=== PATIENT | male | born 1945 | race Caucasian/White ===

== ENCOUNTER 2016-12-27 14:24 | Inpatient (IN) | payer MEDICARE, OTHER ==
[~2016-12-27] VITALS: Ht 180.3 cm; Wt 166.0 kg
[~2016-12-27 14:24] MED LIST: ALBU6.7H IH; AMIO200T2 PO; ASPI-630 PO; ATOR20TA58 PO; EZET10TA18 PO; FISH OIL; FLUT1DIS3 IH; FLUT9.9S NS; FOSI20TA PO; FURO40TA4 PO; GLUC500T10 PO; GLYBURIDE PO; INSU100V13 SQ; IPRA12.9 IH; MAGN400T22 PO; MECL25TA3 PO; METFORMIN PO; METO200T3 PO; OMEGA; POTA20TA12 PO; RIVA10TA PO
--- NOTE | 2016-12-27 14:45 | NUR ---
The patient, JOSIAH SYED JR, 71 y/o, M admitted by DAPHNIE HOLMAN MD, was given written information regarding hospital policies, unit procedures and contact persons. Patient arrived at 1445. He stated he drove himself to hospital and was a direct admit. Stated that he had been bitten by a spider on the top or the right foot on Friday, has been on oral Bactrim DS since Friday. Valuables were checked and wallet and keys sent to safe per patient request.
[2016-12-27 15:08] VITALS: BP 124/68
[2016-12-27] MEDS ORDERED: VANCOMYCIN PER PHARMACY MC PRN (15:15)
[2016-12-27 15:34] LABS: BASO # 0.1 x10^3/uL (0.0-0.2); BASO % 1 % (0-3); EOS # 0.1 x10^3/uL (0.0-0.7); EOS % 1 % (0-3); HEMATOCRIT 37.4 % (39.0-53.0); HEMOGLOBIN 12.8 g/dL (13.0-17.5); LYMPH # 1.5 x10^3/uL (1.0-4.8); LYMPH % 15 % (24-48); MEAN CORPUSCULAR HEMOGLOBIN 30 pg (25-35); MEAN CORPUSCULAR HGB CONC 34 g/dL (31-37); MEAN CORPUSCULAR VOLUME 88 fL (79-100); MONO # 0.8 x10^3/uL (0.0-1.1); MONO % 8 % (0-9); NEUT # 7.7 x10^3uL (1.8-7.7); NEUT % 76 % (31-73); PLATELET COUNT 229 x10^3/uL (140-400); RED BLOOD COUNT 4.26 x10^6/uL (4.30-5.70); RED CELL DISTRIBUTION WIDTH 13.3 % (11.5-14.5); WHITE BLOOD COUNT 10.2 x10^3/uL (4.0-11.0)
[2016-12-27 15:38] LABS: ALBUMIN 3.4 g/dL (3.4-5.0); ALBUMIN/GLOBULIN RATIO 0.9 (1.0-1.7); CALCIUM 9.2 mg/dL (8.5-10.1); CREATININE 2.5 mg/dL (0.7-1.3); GFR 25.6; POTASSIUM 4.9 mmol/L (3.5-5.1); TOTAL BILIRUBIN 0.3 mg/dL (0.2-1.0); TOTAL PROTEIN 7.1 g/dL (6.4-8.2)
[2016-12-27] MEDS ORDERED: VANCOMYCIN 2 GM in IV NORMAL SALINE 500ML 500 ML IV ONE ×2 (15:45→16:00)
[2016-12-27] MEDS: HYDROcodone/APAP 5/325MG 1 TAB TABLET PO PRN (16:10)
[2016-12-27] MEDS ORDERED: SILD100T PO (16:59)
[2016-12-27] MEDS ORDERED: INSU200I4 SQ (16:59)
[2016-12-27] MEDS ORDERED: SENN-37 PO (16:59)
[2016-12-27] MEDS ORDERED: DOCU100C28 PO (16:59)
[2016-12-27] MEDS ORDERED: GABA-586 PO (16:59)
[2016-12-27] MEDS ORDERED: FEXO180T16 PO (16:59)
[2016-12-27] MEDS ORDERED: MULT1TAB52 PO (16:59)
[2016-12-27] MEDS ORDERED: GLYBURIDE PO SCH (17:00)
[2016-12-27] MEDS ORDERED: IPRATROPIUM BROMIDE 17MCG/PUFF 12.9GM INHALER. IH SCH (17:00)
[2016-12-27] MEDS: SENNOSIDES/DOCUSATE 8.6/50MG TABLET. PO SCH (17:00)
[2016-12-27] MEDS ORDERED: METFORMIN PO SCH (17:00)
--- NOTE | 2016-12-27 17:07 | NUR ---
Pharmacy Vancomycin Dosing Note S:Consulted to monitor and dose vancomycin started 12/27/16. O:SAYDAYOLAJOSIAH is a 71 year old M with Cellulitis . Height: 5 feet, 11 inches Weight: 166.526044 kg Gilliam Body Weight: Adjusted Body Weight: Dosing Weight: Actual Other Antibiotics: LABS: Last BUN: 28 Last Creatinine: 2.5 Creatinine Clearance: Last WBC: 10.2 Last Platelets: 229 Tmax (past 24 hours): Microbiology: I/O: Drug Levels: Last level: on at Last dose given 12/27/16 at 1612 Vancomycin Dosing: Loading Dose: 2000 mg x1 Dosing Weight: Actual Target Trough: 10-20 A: Based on: P: 1. Begin Vancomycin 2000 mg IV q24h 2. Follow up Trough level on 12/29/16 at 1530 3. Pharmacy will continue to monitor, follow and adjust therapy as needed. SALO PEREZ RPH, 12/27/16 [id number]
--- NOTE | 2016-12-27 18:07 | NUR ---
RENAL DOSING: patient takes Xarelto at home 20mg daily for afib, serum creatinine-2.5, creatinine clearance- 42.8mL/min, dose of Xarelto adjusted to 15mg po daily, will continue to monitor renal function and restart home dose when renal function improves.
--- NOTE | 2016-12-27 18:08 | RAD ---
EXAM: RIGHT LOWER EXTREMITY VENOUS DOPPLER. HISTORY: Right lower extremity pain/swelling. FINDINGS: Grayscale and doppler analysis of the right lower extremity deep venous system was performed with graded compression and augmentation. The common femoral, greater saphenous, deep femoral, superficial femoral, popliteal, and calf veins were assessed. There is no evidence of deep venous thrombosis. IMPRESSION: No evidence of deep venous thrombosis. Electronically signed by: Dario Randhawa (Dec 27, 2016 18:07:15)
[2016-12-27 18:29] VITALS: BP 124/68
[2016-12-27] MEDS ORDERED: DEXTROSE 50% 25 GM / 50ML DISP.SYRIN. IV PRN (19:15)
[2016-12-27 19:50] VITALS: BP 128/66
[2016-12-27] MEDS: BUDESONIDE 0.5 MG/2 ML NEBU NEB SCH (20:20)
[2016-12-27] MEDS: IPRATROPIUM BROMIDE 0.5 MG/2.5 ML NEBU. NEB SCH (20:20)
[2016-12-27] MEDS: ALBUTEROL SULFATE 2.5 MG/3 ML NEBU. NEB SCH (20:20)
[2016-12-27] MEDS: GABAPENTIN 300 MG CAPSULE. PO SCH (20:44)
[2016-12-27] MEDS: AMIODARONE HCL 200 MG TABLET PO SCH (20:45)
[2016-12-27] MEDS ORDERED: RIVAROXABAN 15 MG TABLET. PO SCH (21:00)
[2016-12-27] MEDS: INSULIN ASPART 300 UNITS/3 ML INSULN.PEN SQ SCH (21:00)
[2016-12-27] MEDS: AZTREONAM 1 GM in IV NORMAL SALINE 50ML 50 ML IV SCH (22:00)
[2016-12-27] MEDS ORDERED: IV NORMAL SALINE 100ML 0 ML ONE (22:24)
--- NOTE | 2016-12-28 01:50 | NUR ---
Nursing Note: HS Novolog, Xarelto and IV Aztreonam documented on Down time forms.
[2016-12-28 03:00] VITALS: BP 172/87
[2016-12-28] MEDS: AZTREONAM 1 GM in IV NORMAL SALINE 50ML 50 ML IV SCH ×3 (04:57→21:31)
[2016-12-28] MEDS: HYDROcodone/APAP 5/325MG 1 TAB TABLET PO PRN ×2 (04:59→11:17)
[2016-12-28] MEDS: ALBUTEROL SULFATE 2.5 MG/3 ML NEBU. NEB SCH ×4 (05:19→20:39)
[2016-12-28 05:54] LABS: BACTERIA,URINE 0 /HPF (0-FEW); BILIRUBIN,URINE NEG (NEG); CLARITY,URINE CLEAR; COLOR,URINE YELLOW; GLUCOSE,URINE NEG (NEG); NITRITE,URINE NEG (NEG); RBC,URINE 0 /HPF (0-2); UROBILINOGEN,URINE 0.2 mg/dL (0.2 mg/dL); WBC,URINE RARE /HPF (0-4)
--- NOTE | 2016-12-28 06:17 | NUR ---
Nursing Note: Kiss Photograph of open area to R dorsal foot complete. Open area measures 0.5cm x 1cm with Deep Redness of surrounding tissue measuring 7.5cm in Diameter, Kiss photograph of Redness completed.
[2016-12-28 06:24] VITALS: BP 120/60
[2016-12-28 06:54] LABS: CALCIUM 9.2 mg/dL (8.5-10.1); GFR 33.1; POTASSIUM 4.2 mmol/L (3.5-5.1)
[2016-12-28 06:59] LABS: HEMATOCRIT 37.9 % (39.0-53.0); HEMOGLOBIN 12.4 g/dL (13.0-17.5); LYMPH % 30 % (24-48); MEAN CORPUSCULAR HEMOGLOBIN 29 pg (25-35); MEAN CORPUSCULAR HGB CONC 33 g/dL (31-37); MEAN CORPUSCULAR VOLUME 90 fL (79-100); MONO % 11 % (0-9); NEUT % 56 % (31-73); PLATELET COUNT 215 x10^3/uL (140-400); RED BLOOD COUNT 4.22 x10^6/uL (4.30-5.70); RED CELL DISTRIBUTION WIDTH 13.2 % (11.5-14.5); WHITE BLOOD COUNT 7.1 x10^3/uL (4.0-11.0)
[2016-12-28 07:00] LABS: BASO # 0.1 x10^3/uL (0.0-0.2); BASO % 1 % (0-3); EOS # 0.2 x10^3/uL (0.0-0.7); EOS % 3 % (0-3); LYMPH # 2.1 x10^3/uL (1.0-4.8); MONO # 0.8 x10^3/uL (0.0-1.1)
[2016-12-28] MEDS: FUROSEMIDE 40 MG TABLET PO SCH (08:30)
[2016-12-28] MEDS: GABAPENTIN 300 MG CAPSULE. PO SCH ×3 (08:30→21:31)
[2016-12-28] MEDS: MULTIVITAMIN with MINERAL TABLET. PO SCH (08:30)
[2016-12-28] MEDS: CETIRIZINE HCL 10 MG TABLET PO SCH (08:30)
[2016-12-28] MEDS: METOPROLOL SUCC 24HR ER 100 MG TAB.ER.24H. PO SCH (08:32)
[2016-12-28] MEDS: EZETIMIBE 10 MG TABLET PO SCH (08:32)
[2016-12-28] MEDS: ASPIRIN 81 MG TAB.CHEW PO SCH (08:32)
[2016-12-28] MEDS: ATORVASTATIN CALCIUM 20 MG TABLET PO SCH (08:33)
[2016-12-28] MEDS: AMIODARONE HCL 200 MG TABLET PO SCH ×2 (08:33→21:31)
[2016-12-28] MEDS: FLUTICASONE 50MCG/NASAL SPRAY 16GM BOTTLE. NS SCH (08:34)
[2016-12-28] MEDS: DOCUSATE SODIUM 100 MG CAPSULE PO SCH (08:34)
[2016-12-28] MEDS: INSULIN ASPART 300 UNITS/3 ML INSULN.PEN SQ SCH ×4 (08:50→21:35)
[2016-12-28] MEDS ORDERED: NON FORMULARY ITEM (Fluticasone/Salmeterol (Advair 250-50 Diskus) 1 EACH) IH SCH (09:00)
[2016-12-28] MEDS ORDERED: RIVAROXABAN 15 MG TABLET. PO SCH ×2 (09:00→21:00)
[2016-12-28] MEDS: BUDESONIDE 0.5 MG/2 ML NEBU NEB SCH ×2 (10:30→20:39)
[2016-12-28] MEDS: IPRATROPIUM BROMIDE 0.5 MG/2.5 ML NEBU. NEB SCH ×4 (10:31→20:39)
[2016-12-28 12:19] VITALS: BP 130/75
--- NOTE | 2016-12-28 12:40 | NUR ---
Pt A&Ox4, cooperative with Adelina frazier RN, in with pt at this time for PICC line placement
--- NOTE | 2016-12-28 14:00 | NUR ---
Order in for wound swab, skin is intact at insect bite with no drainage to swab
--- NOTE | 2016-12-28 14:00 | NUR ---
PICC line placement complete, pt tolerated procedure well, no complaints.
--- NOTE | 2016-12-28 14:14 | NUR ---
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
--- NOTE | 2016-12-28 14:16 | NUR ---
Procedure: Following complete explanation of the PICC procedure including the indications, risks, and potential complications, informed consent was obtained. The possibility for infection was discussed along with signs, symptoms, and prevention. All the patient's questions were answered. IV Device Protocol was used. Written and verbal patient education was provided. Hand hygiene performed. Standardized central line checklist was utilized. The patient was placed in the supine position, the arm was prepped with chlorhexidine and patient draped with maximum sterile barrier. 2 mL 1% lidocaine was infiltrated into the skin to provide local anesthesia. A thorough assessment of the right upper extremity completed. Using real-time ultrasound guidance and standardized micro puncture set, the basilic vein was punctured and a peel away sheath was placed using the modified Seldinger technique. A tip location device was used to ensure adequate catheter placement. The catheter was secured using a securement device and an antimicrobial patch was applied directly on the insertion site followed by a transparent dressing. All ports withdraw blood and flush without resistance. Patient tolerated the procedure without apparent complication(s). A double Lumen Power PICC placement successful and uncomplicated. Placement verified by EKG tip confirmation system. Tip located at CAJ according to EKG system Complications:none
[2016-12-28] MEDS: VANCOMYCIN 2 GM in IV NORMAL SALINE 500ML 500 ML IV SCH (16:37)
[2016-12-28 16:43] VITALS: BP 165/76
[2016-12-28] MEDS: SENNOSIDES/DOCUSATE 8.6/50MG TABLET. PO SCH (17:33)
[2016-12-28 19:00] VITALS: BP 137/67
[2016-12-28] MEDS: INSULIN DETEMIR 300 UNITS/3 ML INSULN.PEN. SQ SCH (21:35)
[2016-12-28] MEDS ORDERED: IV NORMAL SALINE 500ML 0 ML ONE (21:44)
--- NOTE | 2016-12-29 01:53 | PN ---
DATE: 12/28/2016 SUBJECTIVE: A 71-year-old gentleman with sepsis, cellulitis to the right foot, diabetic. The patient apparently was treated as an outpatient, got worse. His lactate was elevated. White count was not too impressive; however, it is noted he had blood sugar of 250, lactic acid 2.2, creatinine of 2.5, which everything has come down. His creatinine now is 2, his lactic acid is 1.6. Blood sugar down about 200. He is receiving IV vancomycin and Azactam and seems to be doing somewhat better. He is not running a temperature. OBJECTIVE: VITAL SIGNS: Blood pressure 120/60, respiratory rate 18, pulse 64, afebrile. LUNGS: Clear. CARDIOVASCULAR: Stable in this very nice portly gentleman. EXTREMITIES: The right foot is swollen, but less so than it has been with marked erythema, less so that has been. IMPRESSION: Sepsis, acute renal failure, cellulitis of the right foot, type 2 diabetes, morbid obesity. PLAN: Continue on IV antibiotic therapy, PICC line and then hopefully home and then for IV antibiotic therapy as an outpatient. DAPHNIE HOLMAN MD DR: LANDON/pako JOB#: [id number] / [id number]
[2016-12-29] MEDS: HYDROcodone/APAP 5/325MG 1 TAB TABLET PO PRN ×2 (02:24→08:01)
[2016-12-29] MEDS: ALBUTEROL SULFATE 2.5 MG/3 ML NEBU. NEB SCH ×2 (05:20→10:20)
[2016-12-29 05:36] LABS: HEMOGLOBIN A1C 9.8 % (4.8-5.6)
[2016-12-29] MEDS: AZTREONAM 1 GM in IV NORMAL SALINE 50ML 50 ML IV SCH ×2 (05:36→14:34)
[2016-12-29 06:03] VITALS: BP 178/67
[2016-12-29] MEDS: FUROSEMIDE 40 MG TABLET PO SCH (07:58)
[2016-12-29] MEDS: ASPIRIN 81 MG TAB.CHEW PO SCH (07:58)
[2016-12-29] MEDS: ATORVASTATIN CALCIUM 20 MG TABLET PO SCH (07:59)
[2016-12-29] MEDS: DOCUSATE SODIUM 100 MG CAPSULE PO SCH (07:59)
[2016-12-29] MEDS: GABAPENTIN 300 MG CAPSULE. PO SCH ×2 (07:59→14:34)
[2016-12-29] MEDS: METOPROLOL SUCC 24HR ER 100 MG TAB.ER.24H. PO SCH (07:59)
[2016-12-29] MEDS: CETIRIZINE HCL 10 MG TABLET PO SCH (07:59)
[2016-12-29] MEDS: AMIODARONE HCL 200 MG TABLET PO SCH (08:00)
[2016-12-29] MEDS: EZETIMIBE 10 MG TABLET PO SCH (08:00)
[2016-12-29] MEDS: MULTIVITAMIN with MINERAL TABLET. PO SCH (08:00)
[2016-12-29] MEDS: INSULIN DETEMIR 300 UNITS/3 ML INSULN.PEN. SQ SCH (08:14)
[2016-12-29] MEDS: INSULIN ASPART 300 UNITS/3 ML INSULN.PEN SQ SCH ×3 (08:14→17:10)
[2016-12-29] MEDS: FLUTICASONE 50MCG/NASAL SPRAY 16GM BOTTLE. NS SCH (08:15)
[2016-12-29] MEDS: BUDESONIDE 0.5 MG/2 ML NEBU NEB SCH (10:20)
[2016-12-29] MEDS: IPRATROPIUM BROMIDE 0.5 MG/2.5 ML NEBU. NEB SCH ×2 (10:20→10:21)
[2016-12-29] MEDS ORDERED: RIVA15TA PO (13:04)
[2016-12-29] MEDS ORDERED: VANC1VIA3 MC (13:04)
[2016-12-29] MEDS ORDERED: INSU100I27 SQ (13:04)
[2016-12-29 14:24] VITALS: BP 149/76
--- NOTE | 2016-12-29 14:26 | RAD ---
Three-view right foot study History: Wound of the top of the right foot with redness and swelling and cellulitis. Findings: No acute fracture or dislocation or osteolytic process is seen. Dorsal soft tissue swelling is seen. No radiopaque foreign body is evident here. Small plantar spur of the calcaneus is seen. 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 IMPRESSION: No acute osseous abnormality is seen.
[2016-12-29 15:56] LABS: VANC TR 10.3 mcg/mL (10.0-20.0)
[2016-12-29] MEDS: VANCOMYCIN 2 GM in IV NORMAL SALINE 500ML 500 ML IV SCH (16:26)
[2016-12-29] MEDS: SENNOSIDES/DOCUSATE 8.6/50MG TABLET. PO SCH (17:13)
--- NOTE | 2016-12-29 17:53 | NUR ---
Pt given all of his belongings, perscriptions, d/c instructions regarding PICC line care, written information on maintaining blood glucose levels, ADA diet guidelines and vancomycin, pt set up and instructed regarding reporting to [facility] for out-pt antibiotic treatments once a day for next 14 days starting tomorrow . Pt is currently getting last dose of vanco for today and will d/c when infusion is complete.
--- NOTE | 2016-12-29 19:00 | NUR ---
Pt ambulated off unit at 1900 assisted by staff.
== END 2016-12-29 19:02 | disposition home or self-care (01) | DRG 872 ==
LOC: 1 SOUTH 14:24
PROVIDERS: ADMIT Family Medicine; ATTEND Family Medicine
DX: A41.9 Sepsis, unspecified organism (principal); L03.115 Cellulitis of right lower limb; N17.9 Acute kidney failure, unspecified; Z68.43 Body mass index [BMI] 50.0-59.9, adult; E11.9 Type 2 diabetes mellitus without complications; E66.01 Morbid (severe) obesity due to excess calories
CPT/HCPCS: 36415; 73630; 80048; 80053; 80202; 81001; 82947; 83036; 83605; 85027; 85651; 87040; 87086; 93971; 94640; J1815; J3370; J3490; J7040; J7613; J7626; J7644

== ENCOUNTER → 2019-01-05 | Outpatient (CLI) | payer MEDICARE, OTHER ==
[2017-01-28 06:35] VITALS: BP 156/83
[~2019-01-05] MED LIST changes: +ALBU2.5V8 IH; -ALBU6.7H IH; -AMIO200T2 PO; +AMIO200T4 PO; +DOCU100C28 PO; +FEXO180T16 PO; -FOSI20TA PO; +FOSI20TA7 PO; +GABA-586 PO; +INSU100I27 SQ; +INSU200I4 SQ; -METO200T3 PO; +METO200T46 PO; +MULT1TAB52 PO; +RIVA15TA PO; +SENN-37 PO; +SILD100T PO; +VANC1VIA3 MC
[2019-01-05 12:20] LABS: CALCIUM 9.2 mg/dL (8.5-10.1); CREATININE 1.8 mg/dL (0.7-1.3); GFR 37.2; POTASSIUM 4.5 mmol/L (3.5-5.1)
== END | disposition home or self-care (01) ==
LOC: LAB 11:14
PROVIDERS: ATTEND Family Medicine
DX: I10 Essential (primary) hypertension (principal)
CPT/HCPCS: 36415; 80048

== ENCOUNTER 2019-10-18 10:57 | Inpatient (IN) | payer MEDICARE, OTHER ==
[~2019-10-18] VITALS: Ht 179.1 cm; Wt 166.6 kg
[~2019-10-18 10:57] MED LIST changes: -EZET10TA18 PO; +EZET10TA20 PO; +MECL-75 PO; -MECL25TA3 PO
[2019-10-18 11:50] VITALS: BP 100/61
[2019-10-18] MEDS ORDERED: [UNRECOGNIZED DRUG - REMARK] (12:34)
[2019-10-18] MEDS ORDERED: METF10007 PO (12:35)
[2019-10-18 14:26] LABS: BASO # 0.1 x10^3/uL (0.0-0.2); BASO % 1 % (0-3); EOS # 1.2 x10^3/uL (0.0-0.7); EOS % 12 % (0-3); HEMATOCRIT 37.2 % (39.0-53.0); LYMPH % 11 % (24-48); MEAN CORPUSCULAR HEMOGLOBIN 30 pg (25-35); MEAN CORPUSCULAR HGB CONC 32 g/dL (31-37); MEAN CORPUSCULAR VOLUME 92 fL (79-100); MONO # 0.9 x10^3/uL (0.0-1.1); MONO % 10 % (0-9); NEUT # 6.6 x10^3uL (1.8-7.7); NEUT % 67 % (31-73); PLATELET COUNT 205 x10^3/uL (140-400); RED BLOOD COUNT 4.02 x10^6/uL (4.30-5.70); RED CELL DISTRIBUTION WIDTH 13.5 % (11.5-14.5); WHITE BLOOD COUNT 9.9 x10^3/uL (4.0-11.0)
[2019-10-18 14:33] LABS: CALCIUM 8.3 mg/dL (8.5-10.1); CREATININE 2.1 mg/dL (0.7-1.3); POTASSIUM 5.2 mmol/L (3.5-5.1); TOTAL BILIRUBIN 0.2 mg/dL (0.2-1.0); TOTAL PROTEIN 5.9 g/dL (6.4-8.2)
[2019-10-18 14:55] VITALS: BP 119/63
--- NOTE | 2019-10-18 16:27 | RAD ---
CHEST PA LATERAL History: Shortness of breath Comparison: 08/06/2016 PA and lateral chest x-ray exam. Findings: Frontal and lateral views of chest were obtained. The cardiomediastinal silhouette is normal. Pulmonary vasculature is normal. The lungs are clear. No pleural effusion or pneumothorax is seen. There is no acute bone abnormality. IMPRESSION: No acute cardiopulmonary process. Electronically signed by: Jozef Alvarez MD (10/18/2019 4:24 PM) [facility]
[2019-10-18] MEDS: predniSONE 20 MG TABLET PO SCH (17:44)
--- NOTE | 2019-10-18 18:34 | EKG ---
[address] [address] Test Date: 2019-10-18 Test Time: 18:11:07 Pat Name: JOSIAH ALFREDOMISHELROME Department: Room: 123 A Gender: M Claim Specialist: : [id number] Requested By: DAPHNIE HOLMAN Order Number: [id number] Reading MD: Measurements Intervals [place] Rate: 78 P: 36 FL: 208 QRS: -10 QRSD: 100 T: 22 QT: 390 QTc: 448 Interpretive Statements SINUS RHYTHM LEFTWARD AXIS OTHERWISE NORMAL ECG RI6.02 No previous ECG available for comparison
[2019-10-18] MEDS: TRIAMCINOLONE ACETONIDE 0.1% TOPICAL CREAM 15GM TUBE. TP SCH (20:10)
[2019-10-18] MEDS: DOXEPIN HCL 25 MG CAPSULE PO SCH (20:10)
[2019-10-18] MEDS: hydrOXYzine HCL 10 MG TABLET PO PRN (20:11)
[2019-10-18] MEDS: INSULIN GLARGINE SYRINGE. SQ SCH (20:22)
[2019-10-18 21:05] VITALS: BP 132/65
[2019-10-18] MEDS: HEPARIN for SUB-Q USE 5,000 UNIT/ML VIAL. SQ SCH (22:12)
[2019-10-18 23:07] LABS: HEMOGLOBIN A1C 7.7 % (4.8-5.6)
[2019-10-18 23:55] VITALS: BP 145/71
[2019-10-19] MEDS: HEPARIN for SUB-Q USE 5,000 UNIT/ML VIAL. SQ SCH ×3 (05:10→21:20)
[2019-10-19] MEDS: hydrOXYzine HCL 10 MG TABLET PO PRN ×2 (05:18→18:08)
[2019-10-19 06:11] VITALS: BP 173/61
[2019-10-19] MEDS: hydrALAZINE 25 MG TABLET PO SCH ×2 (08:20→14:13)
[2019-10-19] MEDS: predniSONE 20 MG TABLET PO SCH (08:20)
[2019-10-19] MEDS: INSULIN GLARGINE SYRINGE. SQ SCH ×2 (08:27→21:21)
[2019-10-19] MEDS: TRIAMCINOLONE ACETONIDE 0.1% TOPICAL CREAM 15GM TUBE. TP SCH ×2 (09:51→21:00)
[2019-10-19 10:36] VITALS: BP 158/80
[2019-10-19] MEDS ORDERED: DEXTROSE 50% 25 GM / 50ML DISP.SYRIN. IV PRN (12:15)
[2019-10-19] MEDS: INSULIN LISPRO 300 UNITS/3 ML VIAL. SQ SCH ×3 (12:34→17:30)
[2019-10-19 14:52] VITALS: BP 160/75
[2019-10-19 18:43] VITALS: BP 116/69
[2019-10-19] MEDS: DOXEPIN HCL 25 MG CAPSULE PO SCH (21:18)
[2019-10-19] MEDS: LACTOBACILLUS RHAMNOSUS GG 1 CAPSULE. PO SCH (21:18)
[2019-10-19 23:14] VITALS: BP 157/81
--- NOTE | 2019-10-20 03:13 | PN ---
DATE: SUBJECTIVE: A 74-year-old gentleman with a diffuse cellulitis to his back as well as multiple eczema reactions to his skin all over his body from his neck on down on his arms, even open sores. Wound Care has seen him today. He says he is feeling a little bit better. Blood pressure is elevated 160/75, respiratory rate 20, pulse 90, afebrile. The patient's oxygen saturation is good. The patient's labs did show an elevated eosinophil count of 12%, which would go along with his situation with his dermatitis and eczema, which is in total. The patient otherwise is resting fairly comfortably using Topicort, other liniments, as well as oral prednisone, which unfortunately has got his sugar up. OBJECTIVE: VITAL SIGNS: Blood pressure is up and will continue to be monitored carefully on him as indicated. LUNGS: Clear. CARDIOVASCULAR: Stable. EXTREMITIES: The patient's rash seems as a smidgen, a little bit less inflamed and irritated. His back is still markedly inflamed and irritated. We will continue with heparin. We have taken off his other blood thinners and most of his other medications and outside of his blood pressure being elevated, he seems to be under fairly good control. IMPRESSION: Severe eczema, dermatitis secondary to medication, history of coronary artery disease. 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 Chest x-ray was unremarkable and otherwise the patient continues to be monitored with aggressive therapy, type 2 diabetes, hyperglycemia secondary to the steroids or exaggerated by it. Senile tremors. He is hard of hearing, hypertension, of course, morbid obesity, obsessive compulsive disorder. The patient will be continued to be monitored carefully and adjust his medications accordingly. DAPHNIE HOLMAN MD DR: LANDON/pako JOB#: [id number] / [id number]
[2019-10-20 05:05] VITALS: BP 135/85
[2019-10-20] MEDS: HEPARIN for SUB-Q USE 5,000 UNIT/ML VIAL. SQ SCH ×3 (05:55→21:17)
[2019-10-20] MEDS: INSULIN LISPRO 300 UNITS/3 ML VIAL. SQ SCH ×6 (08:00→17:10)
[2019-10-20] MEDS: LACTOBACILLUS RHAMNOSUS GG 1 CAPSULE. PO SCH ×2 (09:02→21:12)
[2019-10-20] MEDS: predniSONE 20 MG TABLET PO SCH (09:03)
[2019-10-20] MEDS: TRIAMCINOLONE ACETONIDE 0.1% TOPICAL CREAM 15GM TUBE. TP SCH ×2 (09:15→21:12)
[2019-10-20] MEDS: INSULIN GLARGINE SYRINGE. SQ SCH ×2 (09:16→21:16)
[2019-10-20 11:13] VITALS: BP 147/69
[2019-10-20] MEDS ORDERED: BISACODYL TAB 5 MG TABLET.DR. PO PRN (11:15)
[2019-10-20] MEDS: hydrOXYzine HCL 10 MG TABLET PO PRN ×2 (11:37→18:07)
[2019-10-20 16:03] VITALS: BP 158/72
[2019-10-20 19:14] VITALS: BP 145/79
[2019-10-20] MEDS ORDERED: INSULIN GLARGINE SYRINGE. SQ SCH (21:00)
[2019-10-20] MEDS: DOXEPIN HCL 25 MG CAPSULE PO SCH (21:12)
--- NOTE | 2019-10-20 22:47 | PN ---
DATE: SUBJECTIVE: A 74-year-old gentleman in with a total body allergic reaction to more likely one of his medications. His sugars have also been high as he is on low-dose steroids to help him with the allergic reaction. He is feeling better and shows good progress overall with the rash which is beginning to fade, but still requiring severe monitoring to his blood sugars as well as to his rash. OBJECTIVE: Vital signs include blood pressure 140/70, respiratory rate 20, pulse 70, afebrile. The patient again shows this diffuse rash over his body, although it is fading and there is marked scaling. There are open wounds on his legs, receiving IV antibiotic therapy, wound care, has also reviewed the patient and made timely suggestions. IMPRESSION: Cellulitis to multiple areas of the body, eczema secondary to some type of reaction to medication. PLAN: The patient will continue to be monitored carefully on the problems as noted above. DAPHNIE HOLMAN MD DR: LANDON/paok JOB#: [id number] / [id number]
[2019-10-20 23:23] VITALS: BP 170/83
[2019-10-21] MEDS: HEPARIN for SUB-Q USE 5,000 UNIT/ML VIAL. SQ SCH (06:17)
[2019-10-21 06:31] VITALS: BP 164/84
[2019-10-21 06:48] LABS: CALCIUM 8.8 mg/dL (8.5-10.1); CREATININE 1.5 mg/dL (0.7-1.3); GFR 45.7; POTASSIUM 4.7 mmol/L (3.5-5.1)
[2019-10-21] MEDS: INSULIN LISPRO 300 UNITS/3 ML VIAL. SQ SCH ×2 (08:00→08:19)
[2019-10-21] MEDS: predniSONE 20 MG TABLET PO SCH (08:20)
[2019-10-21] MEDS: LACTOBACILLUS RHAMNOSUS GG 1 CAPSULE. PO SCH (08:20)
[2019-10-21 08:23] VITALS: BP 164/84
[2019-10-21] MEDS: INSULIN GLARGINE SYRINGE. SQ SCH (08:28)
[2019-10-21] MEDS: TRIAMCINOLONE ACETONIDE 0.1% TOPICAL CREAM 15GM TUBE. TP SCH (08:28)
[2019-10-21] MEDS ORDERED: DOXE25CA PO (09:37)
[2019-10-21] MEDS ORDERED: INSU100I11 SQ (09:37)
[2019-10-21] MEDS ORDERED: PRED20TA PO (09:37)
[2019-10-21] MEDS ORDERED: HYDR-2869 PO (09:37)
[2019-10-21] MEDS ORDERED: TRIA15CR3 TP (09:40)
[2019-10-21] MEDS ORDERED: HYDR10TA2 PO (09:40)
[2019-10-21] MEDS ORDERED: CEPH-264 PO (10:41)
--- NOTE | 2019-10-21 10:46 | DISCH ---
HOME HEALTH DISCHARGE/MEDS DISCHARGE INFORMATION: Discharge Date: Oct 21, 2019 Condition on Discharge: Stable CODE STATUS: Code Status: Full HOME HEALTH: Face to Face: I certify this patient is under my care and that I, or a nurse practitioner or jennifer rutherford's assistant director of admissions working with me, had a face to face encounter that meets the physician face to face encounter requirements with this patient on [Date]. Medical Condition(s): Other (cellulitis/body rash) Snf For: Assess Cardiopulm Status, Assess & Educate Safety, Assess/Skilled Observatio, Medication Management Homebound Status Met By: Fatigue w/ amb. POST DISCHARGE ORDERS: DIET AFTER DISCHARGE: Regular CERTIFICATION STATEMENT: Certification Statement: Based on the above finding, I certify that this patient is confined to the home and needs intermittent correction care, physical therapy and/or speech therapy, or continues to need occupational therapy.~ This patient is under my care, and I have initiated the establishment of the plan of care.~ This patient will be followed by myself or a community physician who will periodically review the plan of care. DISCHARGE MEDICATIONS: Home Meds Active Scripts Hydroxyzine Hcl (HYDROXYZINE HCL) 10 Mg Tablet, 20 MG PO PRN Q6HRS PRN for ITCHING for 30 Days, #240 TAB 3 Refills Prov:DAPHNIE HOLMAN MD 10/21/19 Triamcinolone Acetonide (TRIAMCINOLONE ACETONIDE) 15 Gm Cream..g., 1 KELLY TP BID for ezema for 30 Days, #60 EACH Prov:DAPHNIE HOLMAN MD 10/21/19 Insulin Lispro (HUMALOG) 100 Unit/1 Ml Insuln.pen, 20 UNITS SQ TIDWMEALS for dm for 30 Days, #1 EACH Prov:DAPHNIE HOLMAN MD 10/21/19 Prednisone (PREDNISONE) 20 Mg Tablet, 5 MG PO DAILY for ezcema for 30 Days, #60 TAB Prov:DAPHNIE HOLMAN MD 10/21/19 Doxepin Hcl (DOXEPIN HCL) 25 Mg Capsule, 25 MG PO QHS for insominia for 30 Days, #30 CAP Prov:DAPHNIE HOLMAN MD 10/21/19 Hydralazine Hcl (HYDRALAZINE HCL) 50 Mg Tablet, 50 MG PO TID for htn for 30 Days, #90 TAB 3 Refills Prov:DAPHNIE HOLMAN MD 10/21/19 Reported Medications Cephalexin (KEFLEX) 500 Mg Capsule, 1 CAP PO TID for SKIN INFECTION for 10 Days, 0 Refills 10/21/19 Insulin Degludec (Tresiba Flextouch U-200) 200 Unit/1 Ml Insuln.pen, 25 UNIT SQ BID for HIGH BLOOD SUGAR-DIABETES 12/27/16 Discontinued Reported Medications Metformin Hcl (METFORMIN HCL) 1,000 Mg Tablet, 1 TAB PO BID for DIABETES-HIGH BLOOD SUGAR 10/18/19 [Coreg Dose Unknown] No Conflict Check 10/18/19 Rivaroxaban (XARELTO) 10 Mg Tablet, 20 MG PO DAILY for PREVENT BLOOD CLOTS 08/16/15 Fosinopril Sodium (FOSINOPRIL SODIUM) 20 Mg Tablet, 20 MG PO DAILY for HIGH BLOOD PRESSURE 08/16/15 Ezetimibe (ZETIA) 10 Mg Tablet, 20 MG PO DAILY for HIGH CHOLESTEROL 08/16/15 DAPHNIE HOLMAN MD Oct 21, 2019 10:46
== END 2019-10-21 11:10 | disposition home health service (06) | DRG 602 ==
LOC: 1 SOUTH 11:24
PROVIDERS: ADMIT Family Medicine; ATTEND Family Medicine
DX: L03.311 Cellulitis of abdominal wall (principal); N17.0 Acute kidney failure with tubular necrosis; Z68.43 Body mass index [BMI] 50.0-59.9, adult; L03.312 Cellulitis of back [any part except buttock and flank]; L27.0 Generalized skin eruption due to drugs and medicaments taken internally; I25.10 Atherosclerotic heart disease of native coronary artery without angina pectoris; E11.65 Type 2 diabetes mellitus with hyperglycemia; E66.01 Morbid (severe) obesity due to excess calories; F42.9 Obsessive-compulsive disorder, unspecified; I10 Essential (primary) hypertension; T38.0X5A Adverse effect of glucocorticoids and synthetic analogues, initial encounter; Y92.89 Other specified places as the place of occurrence of the external cause
CPT/HCPCS: 36415; 71046; 80048; 80053; 80061; 82947; 83036; 83880; 85025; 87086; 93005; J0696; J1644; J1815; J7512

== ENCOUNTER 2019-12-31 07:11 | Emergency (ER) | payer MEDICARE, OTHER ==
[~2019-12-31] VITALS: Ht 177.8 cm; Wt 166.0 kg
[~2019-12-31 07:11] MED LIST changes: +CEPH-264 PO; +DOXE25CA PO; +HYDR-2869 PO; +HYDR10TA2 PO; +INSU100I11 SQ; +METF10007 PO; +PRED20TA PO; +TRIA15CR3 TP; +[UNRECOGNIZED DRUG - REMARK]
[2019-12-31] MEDS ORDERED: IV DEXTROSE 10% 1,000 ML IV ONE (07:30)
[2019-12-31 07:35] LABS: BASO # 0.1 x10^3/uL (0.0-0.2); BASO % 1 % (0-3); EOS # 0.2 x10^3/uL (0.0-0.7); EOS % 2 % (0-3); HEMOGLOBIN 11.8 g/dL (13.0-17.5); LYMPH # 0.9 x10^3/uL (1.0-4.8); LYMPH % 12 % (24-48); MEAN CORPUSCULAR HEMOGLOBIN 30 pg (25-35); MEAN CORPUSCULAR HGB CONC 33 g/dL (31-37); MEAN CORPUSCULAR VOLUME 92 fL (79-100); MONO # 0.8 x10^3/uL (0.0-1.1); MONO % 11 % (0-9); NEUT # 5.4 x10^3uL (1.8-7.7); NEUT % 74 % (31-73); PLATELET COUNT 208 x10^3/uL (140-400); RED BLOOD COUNT 3.92 x10^6/uL (4.30-5.70); RED CELL DISTRIBUTION WIDTH 14.2 % (11.5-14.5); WHITE BLOOD COUNT 7.3 x10^3/uL (4.0-11.0)
[2019-12-31 07:37] LABS: CALCIUM 8.6 mg/dL (8.5-10.1); CREATININE 1.8 mg/dL (0.7-1.3); GFR 37.1; POTASSIUM 3.9 mmol/L (3.5-5.1)
[2019-12-31] MEDS ORDERED: DEXTROSE 25% 10 ML DISP.SYRIN. IV ONE (07:45)
[2019-12-31 07:49] LABS: ALBUMIN 3.4 g/dL (3.4-5.0); ALBUMIN/GLOBULIN RATIO 1.2 (1.0-1.7); TOTAL BILIRUBIN 0.3 mg/dL (0.2-1.0); TOTAL PROTEIN 6.3 g/dL (6.4-8.2)
--- NOTE | 2019-12-31 09:19 | PHYS DOC ---
Past History Past Medical History: A-Fib, COPD, Diabetes Past Surgical History: No Surgical History Alcohol Use: None Drug Use: None General Adult EDM: Chief Complaint: HYPOGLYCEMIA HPI: HPI: Patient is a 74-year-old male who was found unresponsive at a local grocery store. His blood sugar was checked, and it was 34. Patient was given glucagon by EMS. Upon arrival to ER patient became more awake alert. Patient denies any headache, no chest pain, no abdominal pain, no nausea or vomiting. Patient said he got up this morning he checked his blood sugar and it was 95. Patient drinks some coffee, ate some apple, then he gave himself his morning insulin and then went to the grocery store to buy some food. Patient said he had this happen in the past when he did not eat after give him some insulin. Patient denies suicidal ideation. Patient denies any chest pain, no abdominal pain at this time. Patient feels much better now, he wants to have something to eat. Review of Systems: Review of Systems: Constitutional: Denies fever or chills Eyes: Denies change in visual acuity HENT: Denies nasal congestion or sore throat Respiratory: Denies cough or shortness of breath Cardiovascular: Denies chest pain or edema GI: Denies abdominal pain, nausea, vomiting, bloody stools or diarrhea : Denies dysuria Musculoskeletal: Denies back pain or joint pain Integument: Denies rash Neurologic: Denies headache, focal weakness or sensory changes Endocrine: Denies polyuria or polydipsia Lymphatic: Denies swollen glands Psychiatric: Denies depression or anxiety Heart Score: Risk Factors: Risk Factors: DM, Current or recent (<one month) smoker, HTN, HLP, family history of CAD, obesity. Risk Scores: Score 0 - 3: 2.5% MACE over next 6 weeks - Discharge Home Score 4 - 6: 20.3% MACE over next 6 weeks - Admit for Clinical Observation Score 7 - 10: 72.7% MACE over next 6 weeks - Early Invasive Strategies Current Medications: Current Meds: Current Medications Medications (Trade) Dose Ordered Sig/Jesus Alberto Start Time Stop Time Status Last Admin Dose Admin Dextrose (Dextrose 25% Syringe) 10 ml 1X ONCE 12/31/19 07:45 12/31/19 07:49 DC 12/31/19 07:18 10 ML Allergies: Allergies: Allergies Coded Allergies Type Severity Reaction Last Updated Verified No Known Drug Allergies 08/16/15 No Physical Exam: PE: Constitutional: Well developed, well nourished, no acute distress, non-toxic appearance, obese. HENT: Normocephalic, atraumatic, bilateral external ears normal, oropharynx moist, no oral exudates, nose normal. [] Eyes: PERRLA, EOMI, conjunctiva normal, no discharge. [] Neck: Normal range of motion, no tenderness, supple, no stridor. [] Cardiovascular:Heart rate regular rhythm, no murmur [] Lungs & Thorax: Bilateral breath sounds clear to auscultation [] Abdomen: Bowel sounds normal, soft, no tenderness, no masses, no pulsatile masses. [] Skin: Warm, dry, no erythema, no rash. [] Back: No tenderness, no CVA tenderness. [] Extremities: No tenderness, no cyanosis, no clubbing, ROM intact, no edema. [] Neurologic: Alert and oriented X 3, normal motor function, normal sensory function, no focal deficits noted. [] Psychologic: Affect normal, judgement normal, mood normal. [] Current Patient Data: Labs: Laboratory Tests Test 12/31/19 07:05 12/31/19 07:14 12/31/19 08:17 White Blood Count 7.3 x10^3/uL (4.0-11.0) Red Blood Count 3.92 x10^6/uL (4.30-5.70) L Hemoglobin 11.8 g/dL (13.0-17.5) L Hematocrit 36.0 % (39.0-53.0) L Mean Corpuscular Volume 92 fL (79-100) Mean Corpuscular Hemoglobin 30 pg (25-35) Mean Corpuscular Hemoglobin Concent 33 g/dL (31-37) Red Cell Distribution Width 14.2 % (11.5-14.5) Platelet Count 208 x10^3/uL (140-400) Neutrophils (%) (Auto) 74 % (31-73) H Lymphocytes (%) (Auto) 12 % (24-48) L Monocytes (%) (Auto) 11 % (0-9) H Eosinophils (%) (Auto) 2 % (0-3) Basophils (%) (Auto) 1 % (0-3) Neutrophils # (Auto) 5.4 x10^3uL (1.8-7.7) Lymphocytes # (Auto) 0.9 x10^3/uL (1.0-4.8) L Monocytes # (Auto) 0.8 x10^3/uL (0.0-1.1) Eosinophils # (Auto) 0.2 x10^3/uL (0.0-0.7) Basophils # (Auto) 0.1 x10^3/uL (0.0-0.2) Prothrombin Time 9.8 SEC (9.4-11.4) Prothrombin Time INR 0.9 (0.9-1.1) Activated Partial Thromboplast Time 23 SEC (23-33) Sodium Level 143 mmol/L (136-145) Potassium Level 3.9 mmol/L (3.5-5.1) Chloride Level 105 mmol/L (98-107) Carbon Dioxide Level 29 mmol/L (21-32) Anion Gap 9 (6-14) Blood Urea Nitrogen 34 mg/dL (8-26) H Creatinine 1.8 mg/dL (0.7-1.3) H Estimated GFR (Cockcroft-Gault) 37.1 BUN/Creatinine Ratio 19 (6-20) Glucose Level 49 mg/dL (70-99) L Calcium Level 8.6 mg/dL (8.5-10.1) Magnesium Level 2.0 mg/dL (1.8-2.4) Total Bilirubin 0.3 mg/dL (0.2-1.0) Aspartate Amino Transferase (AST) 21 U/L (15-37) Alanine Aminotransferase (ALT) 22 U/L (16-63) Alkaline Phosphatase 69 U/L (46-116) Troponin I Quantitative < 0.017 ng/mL (0-0.055) YZ-Aac-I-Type Natriuretic Peptide 105 pg/mL (0-124) Total Protein 6.3 g/dL (6.4-8.2) L Albumin 3.4 g/dL (3.4-5.0) Albumin/Globulin Ratio 1.2 (1.0-1.7) Glucose (Fingerstick) 64 mg/dL (70-99) L 146 mg/dL (70-99) H Vital Signs: Vital Signs Date Time Temp Pulse Resp B/P (MAP) Pulse Ox O2 Delivery O2 Flow Rate FiO2 12/31/19 07:34 98.1 61 20 105/41 (62) 95 Room Air EKG: EKG: [] Radiology/Procedures: Radiology/Procedures: [] Course & Med Decision Making: Course & Med Decision Making Pertinent Labs and Imaging studies reviewed. (See chart for details) Patient was fed, observed in the ER for 2.5 hours, his blood sugar has been stabilized at 165. Patient said he felt fine now. He wanted to go home. Dragon Disclaimer: Dragon Disclaimer: This electronic medical record was generated, in whole or in part, using a voice recognition dictation system. Departure Departure: Impression: Primary Impression: Hypoglycemia Disposition: HOME, SELF-CARE Condition: STABLE Referrals: DAPHNIE HOLMAN MD (PCP) please call your doctor for follow up on FRIDAY FOR REEVALUATION Patient Instructions: Hypoglycemia (Low Blood Sugar) Additional Instructions: Thank you for visiting our Emergency Department. We appreciate you trusting us with your care. If any additional problems come up don't hesitate to return to visit us. Please follow up with your primary care provider so they can plan additional care if needed and know about the problem that you had. If symptoms worsen come back to the Emergency Department. Any concerning symptoms that start such as chest pain, shortness of air, weakness or numbness on one side of the body, running high fevers or any other concerning symptoms return to the ER. DAPHNIE LUIS DO December 31, 2019 09:19
[2019-12-31 09:59] VITALS: BP 154/76
== END 2019-12-31 09:54 | disposition home or self-care (01) ==
LOC: ER 07:11
DX: E11.649 Type 2 diabetes mellitus with hypoglycemia without coma (principal); I48.91 Unspecified atrial fibrillation; J44.9 Chronic obstructive pulmonary disease, unspecified
CPT/HCPCS: 36415; 80053; 82947; 83735; 83880; 84484; 85025; 85610; 85730; 96365; 96366; 96376; 99284; J7060; 96374